=== PATIENT | female | born 1990 | race Hispanic/Latino ===

== ENCOUNTER 2023-02-08 11:40 | Emergency (ER) | payer OTHER, SELFPAY ==
[2023-02-08 11:53] VITALS: BP 120/81; PULSE 73; RESP 16; TEMP 36.6; O2SAT 100
--- NOTE | 2023-02-08 12:11 | ED.EXTPRO ---
HPI - Extremity Problem General Chief complaint: Extremity Problem,Nontraumatic Stated complaint: infectio rt big toe Time Seen by Provider: 02/08/23 12:11 Source: patient, RN notes reviewed and old records reviewed Mode of arrival: ambulatory Limitations: no limitations History of Present Illness HPI Narrative: 33-year-old female presents to the [facility] with complaints of right big toe infection, lateral aspect for approximately 1 week. Has a history of type 2 diabetes depression, schizophrenia bipolar, TBI Related Data Home Medications Medication Instructions Recorded Confirmed benztropine 0.5 mg tablet mg 02/08/23 fenofibrate nanocrystallized 48 mg 48 mg PO DAILY 02/08/23 02/08/23 tablet fluoxetine 40 mg capsule 40 mg PO DAILY 02/08/23 02/08/23 glipizide 5 mg tablet mg 02/08/23 haloperidol 10 mg tablet mg 02/08/23 metformin 500 mg tablet,extended mg PO 02/08/23 release 24 hr pioglitazone 45 mg tablet mg 02/08/23 Allergies Allergy/AdvReac Type Severity Reaction Status Date / Time No Known Allergies Allergy Verified 02/08/23 12:06 Review of Systems Review of Systems: All systems reviewed & are unremarkable except as noted in HPI and below Constitutional: Constitutional: Reports no additional constitutional complaints Eyes: Eyes: Reports no additional eye complaints ENT: Reports system reviewed and no additional complaints, except as documented Cardiovascular: Cardiovascular: Reports no additional cardiovascular complaints, Denies chest pain and Denies dyspnea Respiratory: Respiratory: Reports no additional respiratory complaints, Denies chest congestion, Denies cough and Denies dyspnea Gastrointestinal: Gastrointestinal: Reports no additional gastrointestinal complaints, Denies abdominal pain, Denies nausea and Denies vomiting Musculoskeletal: Musculoskeletal: Reports no additional musculoskeletal complaints Integumentary/Breasts: Skin/Breast: Reports as per HPI Neurologic: Reports system reviewed and no additional complaints, except as documented Psychiatric: Psychiatric: Reports no additional psychiatric complaints Allergic/Immunologic: Allergic/Immunologic: Reports no additional allergic/immunologic complaints PMFSH Comments At the time of my signature, I reviewed and agree with the nursing past medical, surgical, social, and family history. There is no relevant family history pertinent to the patient complaint. Exam Const: General: cooperative, healthy appearing, comfortable, no acute distress, well developed, alert and well nourished Nutritional Appearance: well nourished Orientation/consciousness: patient oriented x3 Limitations: no limitations HENMT: Head: normal to inspection Ears: hearing grossly normal bilaterally and external ears normal Face/Nose/Sinus: Normal external nose present, Normal nares present, Normal nasal mucous membranes and turbinates present and normal facial exam Face and sinus: normal facial exam Eyes: General: appearance normal, both eyes and all related structures Alignment and Position: alignment normal Periorbital: periorbital findings normal Pupils: Equal, round and reactive pupils present EOM: EOMs intact bilaterally Neck: Neck: normal visual inspection, full ROM, no lymphadenopathy and no meningeal signs Chest: Chest palpation & inspection: normal inspection of the chest Resp: Effort & Inspection: normal respiratory effort and able to speak in complete sentences Cardio: Rate: regular rate Rhythm: regular rhythm Back/Spine/Pelvis: Cervical Spine: cervical ROM normal Thoracic/Lumbar Spine: No thoracic spinal tenderness Skin: General skin exam: normal color and no rashes or lesions noted Lesions: no lesions Rashes: no rashes Other: right great toe, indurated skin without fluctuance. Soaked for 20-30 minutes and iodine and warm water. No postural change. Trimmed excessive skin, removed crusting her from toenail. Digital block p
[2023-02-08] MEDS: ACETAMINOPHEN 500 MG TABLET 1000 MG PO (12:55)
== END 2023-02-08 13:41 | disposition home or self-care (01) ==
PROVIDERS: Emergency Provider Nurse Practitioner
DX: L03.031 Cellulitis of right toe (principal); L60.0 Ingrowing nail; E78.00 Pure hypercholesterolemia, unspecified; I10 Essential (primary) hypertension; F41.9 Anxiety disorder, unspecified
CPT/HCPCS: 99213; A9270; G0463

== ENCOUNTER 2023-08-23 15:12 | Emergency (ER) | payer OTHER, SELFPAY ==
--- NOTE | ~2023-08-23 | CT_ITS ---
EXAMINATION: CT brain wo con DATE: 08/23/2023 17:29 INDICATION: headache . TECHNIQUE: Computed tomography (CT) of the head was performed without intravenous contrast. The mA wa s adjusted according to patient size. Iterative reconstruction technique was employed. The dose-lengt h product was 605.33 mGy-cm. COMPARISON: None. FINDINGS: No acute intracranial hemorrhage or extra-axial fluid collection. No hydrocephalus, mass, or herniation. No acute ischemic infarct. Unremarkable dural venous sinus attenuation. No acute osseous abnormality. The aerated spaces are clear. IMPRESSION: No acute intracranial process. Reviewed, dictated and finalized at location K. ER MECHANIC
--- NOTE | ~2023-08-23 | CT_ITS ---
EXAMINATION: CT abdomen pelvis w con DATE: 08/23/2023 17:30 INDICATION: n/v/d, ab pain TECHNIQUE: Computed tomography (CT) of the abdomen and pelvis was performed with 100 mL Omnipaque-350 intravenous contrast. Automated exposure control and iterative reconstruction technique were employe d. The dose-length product was 1498.61 mGy-cm. COMPARISON: None. FINDINGS: Lower thorax: Unremarkable Liver: Diffuse fatty infiltration. Enlarged. Biliary/Gallbladder: Gallbladder is normal. No bile duct dilation. Pancreas: No mass or duct dilation. Spleen: Normal. Adrenals:No mass. Kidneys: No suspicious mass, obstructing stone, or hydronephrosis. GI tract: No small or large bowel dilation. Normal appendix. Mesentery/Peritoneum: No ascites, mass, or free air. Retroperitoneum: No mass. Pelvis: Pelvic organs are within normal limits. Soft Tissues: Soft tissues and body wall unremarkable. Bones: No acute osseous finding. IMPRESSION: Hepatomegaly with steatosis. No acute abdominopelvic process detected. Reviewed, dictated and finalized at location K. OPERATOR
[2023-08-23 15:11] VITALS: BP 118/63; PULSE 99; RESP 22; TEMP 36.9; O2SAT 99
[2023-08-23 15:57] LABS: Basophils Percent Auto 0.3 % (0.2-1.2); Eosinophils Absolute Auto 0.1 K/mm3 (0-0.3); Eosinophils Percent Auto 0.6 % (0-4.4); Hematocrit 35.8 % (37.0-47.0); Hemoglobin 11.5 g/dL (12.0-15.0); Immature Granulocyte Absolute 0.05 K/mm3 (0.00-0.031); Immature Granulocyte Percent A 0.5 % (0-0.5); Lymphocytes Absolute Auto 2.32 K/mm3 (0.9-3.2); Lymphocytes Percent Auto 23.5 % (18.3-44.2); Mean Corpuscular HGB Conc 32.1 g/dl (32-36); Mean Corpuscular Volume 87.3 fl (80-100); Mean Platelet Volume 9.6 fl (7.4-10.4); Monocytes Absolute Auto 0.4 K/mm3 (0.1-0.6); Monocytes Percent Auto 4.5 % (2.6-8.5); Neutrophils Percent Auto 70.6 % (45.5-73.1); Platelet Count Result 338 k/mm3 (150-375); Red Cell Distribution Width 13.5 % (11.5-14.5); White Blood Count 9.9 K/mm3 (4.5-10.0)
[2023-08-23] MEDS: ONDANSETRON INJ 4 MG/2 ML VIAL IV PUSH (16:01)
--- NOTE | 2023-08-23 16:01 | ED.GENADULT ---
HPI - General Adult General Chief complaint: Nausea/Vomiting/Diarrhea Stated complaint: n/v Time Seen by Provider: 08/23/23 15:19 History of Present Illness HPI narrative: 33-year-old female present to the ED for evaluation nausea vomiting and diarrhea. After coming back from her physical therapy patient was more agitated had some nausea and vomiting and did have some psychomotor agitation. Unknown if she actually had a seizure or not. Patient has no prior history of seizure disorder. upon rubs the patient complaining headache and abdominal pain. Related Data Home Medications Medication Instructions Recorded Confirmed benztropine 0.5 mg tablet mg 02/08/23 fenofibrate nanocrystallized 48 mg 48 mg PO DAILY 02/08/23 02/08/23 tablet fluoxetine 40 mg capsule 40 mg PO DAILY 02/08/23 02/08/23 glipizide 5 mg tablet mg 02/08/23 haloperidol 10 mg tablet mg 02/08/23 metformin 500 mg tablet,extended mg PO 02/08/23 release 24 hr pioglitazone 45 mg tablet mg 02/08/23 diphenhydramine HCl 25 mg capsule 25 mg PO TID PRN Allergy Symptoms 08/23/23 Allergies Allergy/AdvReac Type Severity Reaction Status Date / Time No Known Allergies Allergy Verified 08/23/23 15:21 Review of Systems Review of Systems: All systems reviewed & are unremarkable except as noted in HPI and below Exam Narrative: APPEARANCE: Well appearing, no pain, no distress, well-nourished. HEAD: normocephalic, atraumatic. EYES: PERRLA/EOMI, conjunctivae clear. NOSE: Normal no drainage EARS:TMS clear with good light reflex. THROAT: Pharynx clear, no exudate. NECK: Supple. No adenopathy, no masses. RESPIRATORY: Airway patent, respirations nonlabored. Clear to auscultation bilaterally, no rales, rhonchi, wheezing. CARDIOVASCULAR: Regular rate and rhythm without murmurs rubs or gallops. ABDOMINAL: diffuse abdominal tenderness to palpation, normal bowel sounds, nondistended MUSCULOSKELETAL: Moves all extremities. Strength/ROM intact, No edema, No calf tenderness. NEURO: Alert. Cranial nerves II through XII intact. Good gait. Good coordination SKIN: Warm, dry. Normal Color Course Course Emergency Course: 33-year-old female presented the ED for evaluation after possible seizure with associated nausea and vomiting. Patient is afebrile with no leukocytosis and a stable hemoglobin. Patient has no significant abnormalities on her CMP UA shows no evidence of underlying infection patient's urine drug screen was negative the patient was negative for influenza RSV and for COVID. CT brain showed no acute intracranial abnormality. CT abdomen pelvis shows no acute intra-abdominal abnormality. On re-evaluation patient denies any complaints states she does feel improved. Vital Signs Vital signs: Vital Signs Temperature 98.5 F 08/23/23 15:11 Pulse Rate 99 08/23/23 15:11 Respiratory Rate 22 H 08/23/23 15:11 Blood Pressure 118/63 08/23/23 15:11 Pulse Oximetry 99 08/23/23 15:11 Oxygen Delivery Room Air 08/23/23 15:11 Temperature 98.5 F 08/23/23 15:11 Pulse Rate 92 08/23/23 18:47 Respiratory Rate 19 08/23/23 18:47 Blood Pressure 102/80 08/23/23 18:47 Pulse Oximetry 95 08/23/23 18:47 Oxygen Delivery Room Air 08/23/23 15:11 Medical Decision Making Differential Diagnosis Differential Diagnosis: COVID, influenza, pneumonia, seizures Vital Signs Vital Signs: Vital Signs Temperature 98.5 F 08/23/23 15:11 Pulse Rate 99 08/23/23 15:11 Respiratory Rate 22 H 08/23/23 15:11 Blood Pressure 118/63 08/23/23 15:11 Pulse Oximetry 99 08/23/23 15:11 Oxygen Delivery Room Air 08/23/23 15:11 Temperature 98.5 F 08/23/23 15:11 Pulse Rate 92 08/23/23 18:47 Respiratory Rate 19 08/23/23 18:47 Blood Pressure 102/80 08/23/23 18:47 Pulse Oximetry 95 08/23/23 18:47 Oxygen Delivery Room Air 08/23/23 15:11 Lab Data Lab results reviewed: Yes I reviewed the patient's lab results.
[2023-08-23 16:05] LABS: Alanine Aminotransferase 53 U/L (6-35); Albumin Level 4.8 g/dL (3.5-5.1); Alkaline Phosphatase 69 U/L (38-126); Anion Gap 11 mmol/L (8-16); Aspartate Amino Transferase 31 U/L (14-36); Bilirubin,Total 0.6 mg/dL (0.2-1.3); Blood Urea Nitrogen 8 mg/dL (7-17); Calcium 9.5 mg/dL (8.4-10.2); Carbon Dioxide 26 mmol/L (22-30); Chloride 101 mmol/L (98-107); Estimated CRCL calculation 150 ml/min; Estimated Glomerular Filt Rate > 60; Glucose 164 mg/dL (65-110); Lipase 54 U/L (23-300); Potassium 3.5 mmol/L (3.4-5.0); Sodium 138 mmol/L (137-145)
--- NOTE | 2023-08-23 16:36 | PC.NURSE ---
Pt very fidgity at this time. picking at herself and pulling out her hair. Pt caregiver states this is not normal for her. notified
[2023-08-23 16:40] LABS: Appearance Urine Clear (Clear); Bilirubin Urine Negative (Negative); Blood Urine Negative (Negative); Color Urine Yellow (Yellow); Glucose Urine UA Negative (Negative); Ketones Urine Trace mg/dL (Negative); Leukocyte Esterase Ur Negative LEU/UL (Negative); Nitrate Urine Negative (Negative); Protein Urine Negative (Negative); Specific Grav Ur 1.032 (1.001-1.035); pH Urine 6.5 (5.0-9.0)
[2023-08-23] MEDS: LORazepam INJ (*CRX) 2 MG/ML VIAL 1 MG IV PUSH (16:49)
[2023-08-23 16:50] LABS: Add Urine Microscopic? NO
[2023-08-23] MEDS: LORazepam INJ (*CRX) 2 MG/ML VIAL 0.5 MG IV PUSH (16:58)
[2023-08-23 17:12] LABS: Amphetamine Screen Urine Negative (Negative); Barbiturate Screen Urine Negative (Negative); Benzodiazepines Screen Urine Negative (Negative); Cannabinoid Screen Urine Negative (Negative); Cocaine Screen Urine Negative (Negative); Methadone Screen Urine Negative (Negative); Opiate Screen Urine Negative (Negative); Phencyclidine Screen Urine Negative (Negative)
[2023-08-23 17:52] LABS: Influenza A QL RT-PCR Negative (Negative); Influenza B QL RT-PCR Negative (Negative); RSV RNA, RT-PCR Negative (Negative); SARS-CoV-2 RNA PCR Negative (Negative)
[2023-08-23 17:55] VITALS: BP 113/63; PULSE 95; RESP 18; O2SAT 99
[2023-08-23 18:47] VITALS: BP 102/80; PULSE 92; RESP 19; O2SAT 95
== END 2023-08-23 19:34 ==
PROVIDERS: Emergency Provider Emergency Medicine; PCP Physician Assistant
DX: R11.2 Nausea with vomiting, unspecified (principal); G40.89 Other seizures; Z20.822 Contact with and (suspected) exposure to COVID-19
CPT/HCPCS: 36415; 70450; 74177; 80053; 80307; 81003; 81025; 83690; 85025; 87637; 96374; 96375; 99284; J2060; J2405; Q9967

== ENCOUNTER 2023-08-28 12:57 | Emergency (ER) | payer OTHER, SELFPAY ==
--- NOTE | ~2023-08-28 | CT_ITS ---
EXAMINATION: CT brain wo con DATE: 08/28/2023 14:51 INDICATION: Altered mental status . TECHNIQUE: Computed tomography (CT) of the head was performed without intravenous contrast. The mA wa s adjusted according to patient size. Iterative reconstruction technique was employed. The dose-lengt h product was 832.33 mGy-cm. COMPARISON: 08/23/2023. FINDINGS: Motion limited examination which required repeat imaging, performed in a noncontiguous fashion. No acute intracranial hemorrhage or extra-axial fluid collection. No hydrocephalus, mass, or herniation. No acute ischemic infarct. Unremarkable dural venous sinus attenuation. No acute osseous abnormality. The aerated spaces are clear. IMPRESSION: No acute intracranial process. Reviewed, dictated and finalized at location K. PPING [employer]
[2023-08-28 13:01] VITALS: BP 130/67; PULSE 110; RESP 19; TEMP 36.6; O2SAT 98
[2023-08-28 13:48] VITALS: O2SAT 98
--- NOTE | 2023-08-28 14:25 | ED.AMS ---
HPI - Altered Mental Status General Chief Complaint: Psychiatric Symptoms <Ross Dong APRN - Last Filed: 08/28/23 18:55> Stated Complaint: ams <Ross Dong APRN - Last Filed: 08/28/23 18:55> Time Seen by Provider: 08/28/23 13:08 <Ross Dong APRN - Last Filed: 08/28/23 18:55> Source: patient <Ross Dong APRN - Last Filed: 08/28/23 18:55> Mode of arrival: ambulatory <Ross Dong APRN - Last Filed: 08/28/23 18:55> Limitations: no limitations <Ross Dong APRN - Last Filed: 08/28/23 18:55> History of Present Illness HPI narrative: Ratna is a 33-year-old female patient presenting to ER today for altered mental status. Patient was brought in by EMS. Patient lives in a care home and staff reports that patient is not acting appropriate for herself. Patient is scratching her head and slamming the door shut at home. Patient's father stated that this is not normal for her. Patient does have history of psychosis and bipolar disorder. Patient was just seen on August 23 in the ER for nausea, vomiting, possible seizure like activity. Labs and CT brain were performed at that time. CT brain was normal and labs unremarkable. Family arrived and reports patient has history of schizophrenia-denies any changes in her medications. Reports she has been taking her medications as directed. <Ross Dong APRN - Last Filed: 08/28/23 18:55> Related Data Home Medications: Home Medications Medication Instructions Recorded Confirmed benztropine 0.5 mg tablet mg 02/08/23 fenofibrate nanocrystallized 48 mg 48 mg PO DAILY 02/08/23 08/29/23 tablet fluoxetine 40 mg capsule 40 mg PO DAILY 02/08/23 08/29/23 glipizide 5 mg tablet 5 mg 02/08/23 haloperidol 10 mg tablet mg 02/08/23 metformin 500 mg tablet,extended 500 mg PO 02/08/23 release 24 hr pioglitazone 45 mg tablet mg 02/08/23 diphenhydramine HCl 25 mg capsule 25 mg PO TID PRN Allergy Symptoms 08/23/23 <Ross Dong APRN - Last Filed: 08/28/23 18:55> Allergies/Adverse Reactions: Allergies Allergy/AdvReac Type Severity Reaction Status Date / Time No Known Allergies Allergy Verified 08/23/23 15:21 <Ross Dong APRN - Last Filed: 08/28/23 18:55> Review of Systems Review of Systems: Pertinent positives per HPI. Patient denies any fever, chills, rash, headache, visual changes, dizziness, cough, runny nose, sore throat, shortness of breath, chest pain, palpitations, nausea, vomiting, diarrhea, constipation, abdominal pain, or any urinary issues. <Ross Dong APRN - Last Filed: 08/28/23 18:55> PMFSH Social History Social History: Social History Substance use type: does not use <Ross Dong APRN - Last Filed: 08/28/23 18:55> Comments At the time of my signature, I reviewed and agree with the nursing past medical, surgical, social, and family history. There is no relevant family history pertinent to the patient complaint. <Ross Dong APRN - Last Filed: 08/28/23 18:55> Exam Narrative: General: Well-developed, well nourished, in no apparent distress Head: Normocephalic, atraumatic Eyes: Pupils equally round and reactive to light bilaterally, EOM intact, sclera and conjunctive clear, no discharge, lids normal Ears: TMs intact and clear, ear canals clear, no drainage, grossly hearing normal. Nose: Nares patent, no discharge, no inflammation, no sinus tenderness. Mouth: Oropharynx without lesions or masses, good dentition, MMM. Tongue midline, even rise and fall of uvula Neck: Supple, trachea midline, no enlargement of anterior or posterior cervical nodes, no thyroid masses or goiter palpable. Cardio: Regular rate and rhythm, s1 and s2 normal, no murmur appreciated. Resp: Clear to auscultation bilaterally anteriorly and posteriorly, no rhonchi, r
--- NOTE | 2023-08-28 14:26 | ECG_ITS ---
Measurements Intervals [place] Rate: 111 P: 62 MD: 163 QRS: 56 QRSD: 77 T: 1 QT: 326 QTc: 445 Interpretive Statements SINUS TACHYCARDIA POSSIBLE LEFT ATRIAL ENLARGEMENT [-0.1mV P WAVE IN V1/V2] NONSPECIFIC T-WAVE ABNORMALITY ABNORMAL ECG NO PREVIOUS ECG AVAILABLE FOR COMPARISON Electronically Signed On 08-29-2023 12:40:46 [employer] by Stone Moody M.D.
[2023-08-28 15:19] LABS: Basophils Absolute Auto 0.1 K/mm3 (0.0-0.1); Basophils Percent Auto 0.5 % (0.2-1.2); Eosinophils Absolute Auto 0.1 K/mm3 (0-0.3); Eosinophils Percent Auto 1.2 % (0-4.4); Hematocrit 35.1 % (37.0-47.0); Hemoglobin 11.3 g/dL (12.0-15.0); Immature Granulocyte Absolute 0.08 K/mm3 (0.00-0.031); Immature Granulocyte Percent A 0.8 % (0-0.5); Lymphocytes Absolute Auto 2.08 K/mm3 (0.9-3.2); Mean Corpuscular HGB Conc 32.2 g/dl (32-36); Mean Corpuscular Hemoglobin 27.8 pg (26-34); Mean Corpuscular Volume 86.5 fl (80-100); Mean Platelet Volume 9.8 fl (7.4-10.4); Monocytes Absolute Auto 0.5 K/mm3 (0.1-0.6); Monocytes Percent Auto 5.1 % (2.6-8.5); Neutrophils Absolute Auto 6.7 K/mm3 (1.3-6.7); Neutrophils Percent Auto 70.4 % (45.5-73.1); Platelet Count Result 383 k/mm3 (150-375); Red Blood Count 4.06 M/mm3 (4.2-5.4); Red Cell Distribution Width 13.2 % (11.5-14.5); White Blood Count 9.5 K/mm3 (4.5-10.0)
[2023-08-28 15:20] LABS: Ammonia 10 umol/L (9-30)
[2023-08-28 15:26] LABS: Glucose Point of Care 145 mg/dl (65-105)
[2023-08-28 16:02] LABS: Alanine Aminotransferase 57 U/L (6-35); Albumin Level 4.6 g/dL (3.5-5.1); Alkaline Phosphatase 65 U/L (38-126); Anion Gap 10 mmol/L (8-16); Aspartate Amino Transferase 29 U/L (14-36); Bilirubin,Total 0.5 mg/dL (0.2-1.3); Blood Urea Nitrogen 6 mg/dL (7-17); Calcium 9.3 mg/dL (8.4-10.2); Carbon Dioxide 21 mmol/L (22-30); Chloride 105 mmol/L (98-107); Creatine Kinase 80 U/L (30-135); Estimated CRCL calculation 193 ml/min; Estimated Glomerular Filt Rate > 60; Glucose 147 mg/dL (65-110); Potassium 3.7 mmol/L (3.4-5.0); Sodium 136 mmol/L (137-145)
[2023-08-28] MEDS: LORazepam INJ (*CRX) 2 MG/ML VIAL IM (16:19)
[2023-08-28] MEDS: HALOPERIDOL LACTATE 5 MG/ML VIAL IM (16:25)
[2023-08-28 16:52] LABS: Acetaminophen < 10 ug/mL (10-30); Ethanol < 10 mg/dL (<10); Salicylate < 1.0 mg/dL (2-20)
[2023-08-28 17:01] LABS: Appearance Urine Cloudy (Clear); Bacteria Urine 4+ /hpf; Bilirubin Urine Negative (Negative); Blood Urine Negative (Negative); Color Urine Yellow (Yellow); Glucose Urine UA Trace mg/dL (Negative); Ketones Urine Negative (Negative); Leukocyte Esterase Ur Trace LEU/UL (Negative); Need Manual Microscopic Reviewed; Nitrate Urine Negative (Negative); Non Pathogenic Casts 0-2; Protein Urine Negative (Negative); Squamous Epithelial Cell Urine Occasional /hpf (Few); Urobilinogen Urine 0.2 mg/dL (<2.0); WBC Urine 0-5 /hpf; pH Urine 6.5 (5.0-9.0)
[2023-08-28 17:03] LABS: Amphetamine Screen Urine Negative (Negative); Barbiturate Screen Urine Negative (Negative); Benzodiazepines Screen Urine Negative (Negative); Cannabinoid Screen Urine Negative (Negative); Cocaine Screen Urine Negative (Negative); Methadone Screen Urine Negative (Negative); Opiate Screen Urine Negative (Negative); Phencyclidine Screen Urine Negative (Negative)
[2023-08-28 17:12] LABS: Add Urine Microscopic? YES
[2023-08-28 17:40] VITALS: BP 129/83; PULSE 111; RESP 19; O2SAT 100
[2023-08-28 17:47] LABS: SARS-CoV-2 RNA PCR Negative (Negative)
--- NOTE | 2023-08-28 19:17 | PC.NURSE ---
Assumed care of pt from CHRISTIAN Lindsay at this time.
--- NOTE | 2023-08-28 20:40 | PC.NURSE ---
Crisis sent paperwork to [facility] and [facility]. To call [facility] in morning to check availability.
[2023-08-28 21:21] VITALS: BP 123/50; PULSE 100; RESP 20; O2SAT 97
--- NOTE | 2023-08-28 21:22 | PC.NURSE ---
This RN obtained updated set of vitals on pt at this time. Pt resting comfortably in bed w no further requests at this time. LIA.
--- NOTE | 2023-08-28 21:30 | PC.NURSE ---
Lisa from [facility] called for more information on pt. This RN provided Lisa w needed information. [facility] has no beds, but may tomorrow morning so she is still working on placement of pt.
--- NOTE | 2023-08-28 22:04 | PC.NURSE ---
Ariana from [facility] called for more information on pt. This RN answered all additional questions. Ariana to call back after presenting pt to .
--- NOTE | 2023-08-28 22:52 | PC.NURSE ---
Lisa from [facility] called needing IQ documentation. This RN contacted sister whom does not have this document and attempted to call longterm w no success. [facility] stated pt cannot be accepted w this documentation and that she would be on waitlist until they had proof of documentation. Will pass onto daytime nurse taking over to contact longterm for this document if pt is not placed elsewhere tonight.
[2023-08-28 23:13] VITALS: BP 102/89; PULSE 89; RESP 17; O2SAT 98
[2023-08-29 00:33] VITALS: BP 113/87; PULSE 90; RESP 17; O2SAT 95
[2023-08-29 05:15] VITALS: BP 110/67; PULSE 77; RESP 20; O2SAT 96
--- NOTE | 2023-08-29 07:23 | PC.NURSE ---
Report given to CHRISTIAN Rojas at this time.
--- NOTE | 2023-08-29 08:08 | PC.NURSE ---
Pt incontinent of bowel & bladder. Pt cleansed, linen changed, depends applied. Pt following commands, went to sink, washed hands & face. Breakfast tray ordered.
--- NOTE | 2023-08-29 08:25 | PC.NURSE ---
RN called [facility] Esteb[facility] pts retirement, line busy
--- NOTE | 2023-08-29 08:57 | PC.NURSE ---
RN attempted to call [facility] Esteb[facility] with no answer. Attempted to call pt sister who is guardian, no answer
--- NOTE | 2023-08-29 09:15 | PC.NURSE ---
Pt breakfast tray given. Pt conversing in short sentences appropriately
--- NOTE | 2023-08-29 09:21 | PC.NURSE ---
RN attempted to call Leidy Mendoza @ [phone] message states the phone number is not taking calls. [facility] phone number non-functioning
--- NOTE | 2023-08-29 09:29 | PC.NURSE ---
Pt ate 100% of breakfast tray. Continues to be appropriate and cooperative with RN. Conversing in short sentences.
--- NOTE | 2023-08-29 10:11 | PC.NURSE ---
[facility] called spoke with pt. Requesting fax pt assessments & chart. Both faxed
[2023-08-29 10:37] VITALS: BP 102/63; PULSE 88; RESP 16; TEMP 36.6; O2SAT 97
--- NOTE | 2023-08-29 11:02 | PC.NURSE ---
[facility], denied pt due to higher acuity of ADL's.
--- NOTE | 2023-08-29 11:39 | PC.NURSE ---
Lizz with [facility] called requesting demonigraphic sheet & urine preg test. Pt update given. Pt is cooperative speaking in short sentences appropriately
[2023-08-29 11:49] LABS: Pregnancy On Board Control Positive; Urine Pregnancy Test Negative
--- NOTE | 2023-08-29 12:15 | PC.NURSE ---
Lunch tray ordered
--- NOTE | 2023-08-29 13:00 | PC.NURSE ---
Pt ambulated to bathroom, voided small amount of clear yellow urine, incontinent in depends. Pt independent with washing hands. Continues to speak in short sentences.
--- NOTE | 2023-08-29 13:15 | PC.NURSE ---
Application for Voluntary Admission faxed to [facility] Intake per request @ [phone]
--- NOTE | 2023-08-29 15:03 | PC.NURSE ---
Pt ambulated independently to BR. Pt conversing with RN, asking to have lights off asking for help with TV
== END 2023-08-29 18:00 ==
PROVIDERS: Nurse Practitioner Family; Emergency Provider Emergency Medicine; PCP Physician Assistant
DX: R41.82 Altered mental status, unspecified (principal); R45.1 Restlessness and agitation; F20.9 Schizophrenia, unspecified; Z11.52 Encounter for screening for COVID-19; Z79.84 Long term (current) use of oral hypoglycemic drugs
CPT/HCPCS: 36415; 70450; 80053; 80307; 81001; 81025; 82140; 82248; 82550; 82948; 83605; 84443; 85025; 87635; 93005; 96372; 99285; J1630; J2060

== ENCOUNTER 2025-01-10 18:10 | Emergency (ER) | payer OTHER, SELFPAY ==
--- NOTE | ~2025-01-10 | CT_ITS ---
CLINICAL INDICATION: Left lower quadrant pain COMPARISON: 08/23/2023. TECHNIQUE: Multiple contiguous axial images of the abdomen and pelvis were performed without the admi nistration of intravenous contrast The dose-length product (DLP) was 1058.21 mGy-cm. Automated exposure control and iterative reconstruction technique were employed. FINDINGS/OBSERVATIONS: Visualized lower thorax: Trace bibasilar atelectasis. The remainder of the bilateral lung bases are clear The heart is of normal size, without pericardial effusion. Small hiatal hernia is present. Liver: The liver demonstrates homogeneously decreased attenuation and is enlarged measuring 19 cm in longitu dinal dimension. Gallbladder and biliary system: The gallbladder is only minimally distended, and otherwise unremarkable. Pancreas: Limited evaluation of the pancreas secondary to the lack of intravenous contrast. Spleen: The spleen demonstrates homogeneous attenuation and is not enlarged. There are Kidneys: The bilateral kidneys are unremarkable, without hydronephrosis or renal calculi. Adrenal glands: Unremarkable. Gastrointestinal tract: Unremarkable. Appendix: The air-filled appendix is of normal caliber (axial series, images 146 through 166). Vasculature: Unremarkable. Lymph nodes: Limited evaluation without intravenous contrast. Pelvic structures: The bladder is only minimally distended and otherwise unremarkable. The uterus is anteverted and anteflexed, and otherwise unremarkable. Body wall and musculoskeletal: No significant degenerative disease within the lower thoracic or lumbosacral spine. IMPRESSION: Fatty infiltration of an enlarged liver. No acute intra-abdominal pathology, as detailed above. Reviewed, dictated and finalized at location A.
--- OUTSIDE RECORDS SUMMARY | 2025-01-10 18:13 | XMS_ITS | Clinical Summary ---
Author Organization [facility] Address [address] [place] [address] Care Team Providers Care Automobile Repair Service Estimator Name Role Phone Jung Brown MD Primary Care Provider [phone] Source Comments [facility],non-owned Affiliates and Associated Physician Practices is amultiple site organization consisting of ambulatory clinics and hospital sitesin [place], [place], [place] and [place]. This disclosure is being madepursuant to the Care Everywhere program and may not contain all information available regarding this patient. Last updated 18.[facility] Allergies No known active allergies Medications * This document contains information received from the source organization and may not represent a complete record from that organization. * Be aware that medications may not be up to date on this document. Alwaysverify current medications with the patient. fenofibrate (TRICOR) 48 MG tabletIndications: Type 2 diabetes mellitus with complication, with long-term current use of insulin (HCC) Take 48 mg by mouth once daily 6 02/14/20 18 Active Incontinence Supply Disposable (DEPEND ADJUSTABLE UNDERWEAR) MISC Use 1 Each 2 times daily 60 Each 11 02/01/20 19 Active ergocalciferol (DRISDOL) 62679 units capsule ergocalciferol (vitamin D2) 50,000 unit capsule Active pioglitazone (ACTOS) 45 MG tabletIndications: Type 2 diabetes mellitus with complication, with long-term current use of insulin (HCC) Take 1 tablet by mouth once daily 90 tablet 3 05/16/20 Active metFORMIN ER 24hr (GLUCOPHAGE XR) 500 MG tabletIndications: Type 2 diabetes mellitus with complication, with long-term current use of insulin (HCC) Take 2 tablets in morning and 2 tablets in evening 360 tablet 3 08/01/20 19 Active glipiZIDE (GLUCOTROL) 5 MG tablet Take 1 tablet by mouth 2 times daily 180 tablet 3 11/28/19 20 Active benztropine (Cogentin) 0.5 MG tabletIndications: Drug-Induced Extrapyramidal Reaction Take 1 (one) tablet by mouth 2 times daily Reasons: Extrapyramidal Reaction caused by Medications 60 tablet 2 04/22/20 22 Active haloperidol (Haldol) 10 MG tabletIndications: Behavioral Problems Take 1 (one) tablet by mouth 2 times daily Reasons: Problems with Behavior 60 tablet 2 04/22/20 22 Active FLUoxetine (PROzac) 40 MG capsule Take 1 (one) capsule by mouth every morning 90 capsule 2 04/22/20 22 Active Active Problems Problem Noted Date Diagnosed Date Intellectual functioning disability 11/07/2019 Major depressive disorder with current active ep isode 08/31/2019 PTSD (post-traumatic stress disorder) 08/31/2019 Bowel and bladder incontinence 01/31/2019 Microalbuminuric diabetic nephropathy 01/31/2019 Rash of genitalia 01/31/2019 Diabetes mellitus with neurological manifestatio ns 03/28/2018 Hyperlipidemia 12/26/2017 Immunizations Immunization Administration Dates Next Due FLU VACCINE QUAD IIV4 SPLIT 0.25 ML IM 8,06/15/2016 INFLUENZA VACCINE, CELL CULT URE, QUADR. (FLUCELVAX QUADRIVALENT; 6MO+) (CCIIV4) 05/31/2019 PNEUMOCOCCAL PPSV23 12/05/2017 TDAP (7yrs+) 12/05/2017 Social History Tobacco Use Types Packs/Day Years Used Date Smoking Tobacco: Never Smokeless Tobacco: Never Alcohol Use Standard Drinks/Week Comments No 0 (1 standard drink = 0.6 oz pur e alcohol) PHQ-2 Answer Date Recorded PHQ2 TOTAL SCORE 3 01/19/2022 Comments No Sex and Gender Information Value Date Recorded Sex Assigned at Not on file Legal Sex Female 5:53 PM PRESS WASHER Gender Identity Not on file Sexual Orientation Not on file Last Filed Vital Signs Vital Sign Reading Time Taken Comments Blood Pressure 116/74 01/19/2022 8:12 AM CDT Pulse 85 04/22/2022 10:55 AM CDT Temperature 36.4 C (97.6 F) 04/22/2022 10:55 AM CDT Respiratory Rate 20 04/22/2022 10:55 AM CDT Oxygen Saturation 100% 04/22/2022 10:55 AM CDT Inhaled Oxygen Concentration - - Weight 95.8 kg (211 lb 3.2 oz) 04/22/2022 10:55 AM CDT Height 162.6 cm (5' 4 ) 04/22/2022 10:55 AM CDT Body Mass Index 36.25 04/22/2022 10:55 AM CDT Plan of Treatment Health Maintenance Due Date Last Done Comments PAP SMEAR 1989 HIV SCREENING 01/07/2004 HEPATITIS C SCREENING 01/02/2007 HEPATITIS B VACCINE (1 of 3 - 19+ 3-dose series) 01/07/2008 DIABETES RETINOPATHY SCREENING 03/28/2018 PNEUMOCOCCAL VACCINE (2 of 2 - PCV) 12/05/2018 12/05/2017 DIABETES-FOOT EXAM WITH MONOFILAMENT 08/01/2020 08/01/2019, 03/28/2018, 03/28/2018 DIABETES-HGB A1C 01/24/2022 10/27/2021, , 11/22/2018, Additional history exists DIABETES-SERUM CREATININE 10/27/20222021, 12/06/2018, 11/22/2018, Additional history exists COVID-19 VACCINE ( - season) 2024 DEPRESSION SCREENING 09/19/2024 04/22/2022 DIABETES - URINE PROTEIN SCREENING 09/19/2024 11/22/2018 INFLUENZA VACCINE (Season Ended) 2025 05/26/2021, 05/31/2019, 12/05/2017, Additional history exists DTAP/TDAP/TD VACCINES (2 - Td or Tdap) 12/06/2027 12/05/2017 ZOSTER VACCINE (1 of 2) 2039 HIB VACCINE Aged Out No longer eligi ble based on patient's age to complete this topic HPV VACCINE Aged Out No longer eligi ble based on patient's age to complete this topic MENINGOCOCCAL (Group B) VACCINE SHARED DECISION-MAKING Aged Out No longer eligible based on patient's age to complete this topic MENINGOCOCCAL GROUPS A/C/Y/W VACCINE Aged Out No longer eligible based on patient's age to complete this topic Procedures Procedure Name Priority Date/Time Associated Diagnosis Comments HEMOGLOBIN A1C - POINT OF CARE (AMB) [facility] Routine 08/01/2019 3:33 PM PRESS WASHER Type 2 diabetes mellitus without complication, without long-term current use of insulin COMPREHENSIVE METABOLIC PANEL STAT 12/06/2018 12:51 PM CDT MICROALB/CREAT RATIO URINE RANDOM PANEL Routine 11/22/2018 2:48 PM PRESS WASHER Type 2 diabetes mellitus with complication, with long-term current use of insulin from Last 3 Months or Most Recently Relevant to Health Maintenance Results * HEMOGLOBIN A1C - POINT OF CARE (AMB) [facility] (08/01/2019 3:33 PM PRESS WASHER) Pathologist [facility] Hemoglobin A1c POCT 11.6 [facility] Blood BLOOD SPECIMEN / Unknown 08/01/2019 3:33 PM PRESS WASHER us Dyana Tracey MD LAB - POINT OF CARE ORDERABLES F inal Result [facility] [address] [place] [address] * (ABNORMAL) COMPREHENSIVE METABOLIC PANEL (12/06/2018 12:51 PM CDT) Pathologist [facility] BUN 11 7 - 26 mg/dL 12/06/2018 1:24 PM CDT [facility] Creatinine 0.4(L) 0.6 - 1.2 mg/dL 12/06/2018 1:24 PM CDT [facility] Sodium 137 136 - 145 mmol/L 12/06/2018 1:24 PM CDT [facility] Potassium 3.8 3.5 - 4.5 mmol/L 12/06/2018 1:24 PM CDT [facility] Chloride 106 98 - 107 mmol/L 12/06/2018 1:24 PM [facility] CO2 20(L) 22 - 29 mmol/L 12/06/2018 1:24 PM [facility] Glucose 308(H) 70 - 115 mg/dL 12/06/2018 1:24 PM [facility] Calcium 9.7 8.4 - 10.2 mg/dL 12/06/2018 1:24 PM [facility] Protein Total 7.3 6.0 - 8.3 g/dL 12/06/2018 1:24 PM [facility] Albumin 3.8 3.4 - 5.0 g/dL 12/06/2018 1:24 PM [facility] Bilirubin Total 0.6 0.2 - 1.2 mg/dL 12/06/2018 1:24 PM [facility] Alkaline Phosphatase 82 40 - 150 Units/L 12/06/2018 1:24 PM [facility] ALT 18 0 - 55 Units/L 12/06/2018 1:24 PM [facility] AST 11 5 - 34 Units/L 12/06/2018 1:24 PM [facility] Anion Gap 15 8 - 18 12/06/2018 1:24 PM [facility] BUN/Creatinine Ratio 28(H) 7 - 23 12/06/2018 1:24 PM [facility] Osmolality Calculated 295 270 - 300 mOsm/kg 12/06/2018 1:24 PM [facility] Albumin/Globulin Ratio 1.1 1.1 - 2.3 12/06/2018 1:24 PM [facility] eGFR >60 >60 mL/min/1.7 3 m2 12/06/2018 1:24 PM [facility] Blood BLOOD SPECIMEN / Unknown Venipuncture / Unknown 12/06/2018 12:51 PM CDT 12/06/2018 12:59 PM T us Jean Claude Barriga MD LAB - CHEMISTRY ORDERABLES Final Result [facility] [address] [place] [address] * (ABNORMAL) MICROALB/CREAT RATIO URINE RANDOM PANEL (11/22/2018 2:48 PM PRESS WASHER) Albumin Random Urine 13.0 Not Established mcg/mL 11/22/2018 4:29 PM [facility] Creatinine Urine 44 Not Established mg/dL 11/22/2018 4:29 PM PRESS WASHER [facility] Comment: Result obtained by dilution. Urine Albumin/Creati nine Ratio 30(H) <30 mg/g 11/22/2018 4:29 PM [facility] Urine URINE SPECIMEN OBTAINED BY CLEAN CATCH PROCEDURE / Unknown Collection / Unknown 11/22/2018 2:48 PM PRESS WASHER 11/22/2018 3:32 PM PRESS WASHER us Gayle Campbell MD LAB - URINE CHEMISTRY ORDERABL ES Final Result [address] [phone] from Last 3 Months or Most Recently Relevant to Health Maintenance Insurance [facility] Care Address: [address] [address] [facility] [address] [place] [address] [facility] Care Teams Automobile Repair Service Estimator Relationship Specialty Start Date End Date Jung Brown MD [address] [place] [address] PCP - General 08/26/15
--- OUTSIDE RECORDS SUMMARY | 2025-01-10 18:13 | XMS_ITS | Encounter Summary ---
Author Organization [facility] Address [address] 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 Name Role Phone Josue Walsh MD Primary Care Provider [phone] Encounter Details Date Type Department Care Team (Late st Contact Info) Description 12/17/2024 Results Follow-Up [facility] - Internal Medicine - [place] [address] [place] [address] Josue Walsh MD [address] [facility] [place] [address] POCT GLYCOSYLATED HEMOGLOBIN Social History Tobacco Use Types Packs/Day Years Used Date Smoking Tobacco: Never Passive Smoke Exposure: Never Smokeless Tobacco: Never Alcohol Use Standard Drinks/Week Comments Never 0 (1 standard drink = 0.6 oz pur e alcohol) [facility] Utilities Answer Date Recorded In the past 12 months has [employer], gas, oil, or water [employer] threatened to shut off services in your home? Patient unable to answer 11/15/2023 Social Connection and Isolation Panel [NHANES] A nswer Date Recorded In a typical week, how many times do you talk on the phone with family, friends, or neighbors? Patient unable to answer 11/15/2023 How often do you get togethe r with friends or relatives? Patient unable to answer 11/15/2023 How often do you attend chur ch or mu-ism services? Patient unable to answer 11/15/2023 Do you belong to any clubs o r organizations such as anglican groups, unions, fraternal or athletic groups, or school groups? Patient unable to answer 11/15/2023 How often do you attend meet ings of the clubs or organizations you belong to? Patient unable to answer 11/15/2023 Are you , , di vorced, , never , or living with a partner? Patient unable to answer 11/15/2023 AUDIT-C Answer Date Recorded Q1: How often do you have a drink containing alcohol? Patient unable to answer 11/15/2023 Q2: How many drinks containi ng alcohol do you have on a typical day when you are drinking? Patient unable to answer Q3: How often do you have si x or more drinks on one occasion? Patient unable to answer 11/15/2023 Overall Financial Resource Strain (CARDIA) Answe r Date Recorded How hard is it for you to pa y for the very basics like food, housing, medical care, and heating? Patient unable to answer 11/15/2023 PHQ-2 Answer Date Recorded Total Score - Questions 1-9 0 09/19 [facility] - Occupational Stress Questionnaire Answer Date Recorded Do you feel stress - tense, restless, nervous, or anxious, or unable to sleep at night because your mind is troubled all the time - these days? Patient unable to answer 11/15/2023 Exercise Vital Sign Answer Date Recorde d On average, how many days pe r week do you engage in moderate to strenuous exercise (like a brisk walk)? Patient unable to answer 11/15/2023 On average, how many minutes do you engage in exercise at this level? Patient unable to answer 11/15/2023 Hunger Vital Sign Answer Date Recorded Within the past 12 months, y ou worried that your food would run out before you got the money to buy more. Patient unable to answer 11/15/2023 Within the past 12 months, t he food you bought just didn't last and you didn't have money to get more. Patient unable to answer 11/15/2023 PRAPARE - Transportation Answer Date Re corded In the past 12 months, has l ack of transportation kept you from medical appointments or from getting medications? Patient unable to answer 11/15/2023 In the past 12 months, has l ack of transportation kept you from meetings, work, or from getting things needed for daily living? Patient unable to answer 11/15/2023 Housing Stability Vital Sign Answer Henrik e Recorded In the last 12 months, was t here a time when you were not able to pay the mortgage or rent on time? Patient unable to answer 11/15/2023 Number of Places Lived in the Last Year Not on f ile 11/15/2023 In the last 12 months, was t here a time when you did not have a steady place to sleep or slept in a correction (including now)? Patient unable to answer 11/15/2023 Sexually Active Control Partners Comments Never Comments No Sex and Gender Information Value Date Recorded Sex Assigned at Not on file Legal Sex Female 10:07 AM CDT Gender Identity Not on file Sexual Orientation Not on file documented as of this encounter Plan of Treatment Upcoming Encounters Date Type Department Care Team (Late st Contact Info) Description 02/27/2025 9:45 AM CDT Office Visit [facility] - Internal Medicine [place] [address] [place] [address] Josue Walsh MD [address] [place] [address] documented as of this encounter Visit Diagnoses Not on filedocumented in this encounter Additional Health Concerns Assessment Noted Time PHQ-9 Depression Total Score: 0 09/30/19 21 10:00 AM 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
--- OUTSIDE RECORDS SUMMARY | 2025-01-10 18:13 | XMS_ITS | Clinical Summary ---
Author Organization [facility] Address [address] [place] [address] Phone Care Team Providers Care Manager Corporate Responsibility Name Role Phone Josue Walsh MD Primary Care Provider [phone] Allergies No known active allergies Medications fenofibrate (TRICOR) 48 MG Tablet Take by mouth. 8 Active FLUoxetine (PROZAC) 40 MG Capsule Take by mouth. 0 Active OneTouch Ultra Strip 0 Active Easy Touch Lancets 30G Misc 0 Active pioglitazone (ACTOS) 45 MG Tablet Take by mouth. 9 Active acetaminophen (TYLENOL) 325 MG Tablet Take 325 mg by mouth every 4 hours as needed. Active ketoconazole (NIZORAL) 2 % Cream 2 Active haloperidol (HALDOL) 10 MG Tablet Take 1 Tablet by mouth 2 times daily. Active Hydrocortisone Acetate 1 % Cream Apply 1 application twice a day by topical route as needed for 30 days. 9 Active triamcinolone (KENALOG) 0.1 % Cream APPLY A THIN LAYER TO THE AFFECTED AREA(S) BY TOPICAL ROUTE 2 TIMES PER DAY Active metFORMIN (GLUCOPHAGE-XR) 500 MG TABLET SR 24 HR Take 2 Tablets by mouth 2 times daily. This RX is for Metformin SR. 120 Tablet 5 4 Active glipiZIDE (GLUCOTROL) 10 MG Tablet Take 1 Tablet by mouth 2 times daily (after meals). 60 Tablet 3 4 Active insulin glargine (LANTUS, BASAGLAR) 100 UNIT/ML Solution Pen-injector 10 Units by Subcutaneous route every evening. 3 mL 5 4 Active Insulin Pen Needle (PEN NEEDLES 31GX5/16 ) 31G X 8 MM Misc As Instructed 30 Each 4 4 Active diphenhydrAMINE (BENADRYL) 25 MG Capsule Take 25 mg by mouth every 6 hours as needed. Active divalproex (DEPAKOTE ER) 500 MG TABLET SR 24 HR Take 500 mg by mouth daily. Active fluticasone (FLONASE) 50 MCG/ACT Suspension 1 [place] by Nasal route daily. Use in each nostril as directed. 16 g 5 Active Active Problems Problem Noted Date Diagnosed Date Type 2 diabetes mellitus wit hout complication, without long-term current use of insulin 09/30/2020 Mixed hyperlipidemia 09/30/2020 Bipolar disorder 09/30/2020 Intellectual disability 09/30/2020 Encounters Date Type Department Care Team Description 12/17/2024 2:00 PM CDT Office Visit [facility] Internal Medicine [facility] [address] [place] [address] Josue Walsh MD Ear pain, bilateral (Primary Dx); Type 2 diabetes mellitus without complication, without long-term current use of insulin (HCC); Acute pain of right shoulder Discharge Disposition: Discharged to home or Selfcare 12/17/2024 Results Follow-Up [facility] Internal Medicine [facility] [address] [place] [address] Josue Walsh MD POCT GLYCOSYLATED HEMOGLOBIN 12/17/2024 Travel from Last 3 Months Immunizations Immunization Administration Dates Next Due Influenza Vaccine greater than 3 yrs 06/23/2022 Influenza Vaccine, Quadrivalent, PF 05/26/2021 Social History Tobacco Use Types Packs/Day Years Used Date Smoking Tobacco: Never Passive Smoke Exposure: Never Smokeless Tobacco: Never Tobacco Cessation:Counseling Given: No Alcohol Use Standard Drinks/Week Comments Never 0 (1 standard drink = 0.6 oz pur e alcohol) [facility] Utilities Answer Date Recorded In the past 12 months has e [employer], gas, oil, or water [employer] threatened to shut off services in your [...] 11/15/2023 How often do you attend chur or anabaptist services? Patient unable to answer 11/15/2023 Do you belong to any clubs o r organizations such as lutheran groups, unions, fraternal or athletic groups, or [...] Total Score - Questions 1-9 0 09/19 [facility] - Occupational Stress Questionnaire Answer Date Recorded [...] place to sleep or slept in a assisted (including now)? Patient unable to answer 11/15/2023 Sexually Active Control Partners Comments Never Comments No Sex and Gender Information Value Date Recorded Sex Assigned at Not on file Legal Sex Female 10:07 AM CDT Gender Identity Not on file Sexual Orientation Not on file Last Filed Vital Signs Vital Sign Reading Time Taken Comments Blood Pressure 118/64 12/17/2024 1:50 PM CDT Pulse 64 12/17/2024 1:50 PM CDT Temperature 36.6 C (97.9 F) 12/17/2024 1:50 PM CDT Respiratory Rate 12 02/14/2024 10:14 AM CDT Oxygen Saturation 98% 12/17/2024 1:50 PM CDT Inhaled Oxygen Concentration - - Weight 99.8 kg (220 lb) 12/17/2024 1:50 PM CDT Height 165.1 cm (5' 5 ) 12/17/2024 1:50 PM CDT Body Mass Index 36.61 12/17/2024 1:50 PM CDT Plan of Treatment Upcoming Encounters Date Type Department Care Team (Late st Contact Info) Description 02/27/2025 9:45 AM CDT Office Visit [facility] - Internal Medicine - [place] [address] [place] [address] Josue Walsh MD [address] [place] [address] Health Maintenance Due Date Last Done Comments Diabetes: Eye Exam 1989 Hepatitis C Virus (HCV) Screening 1989 Hepatitis B Immunization (1 of 3 - 19+ 3-dose series) 01/07/2008 Pap Smear 2010 Pneumococcal Immunization Combined (2 of 2 - PCV) 12/05/2018 12/05/2017 Cervical Cancer Screening (CCS) 2019 HPV/Cotest 2019 SARS-COV-2 Immunization ( season) 2024 06/30/2022, 11/10/2021, 11/05/2020, Additional history exists Diabetes: Foot Exam 02/13/2025 02/14/2024, Diabetes: Hemoglobin A1c 06/18/2025 025, 10/10/2024, 09/04/2024, Additional history exists Diabetes: Nephropathy Screening 10/10/2025 10/10/2024, 09/04/2024, 10/06/2023, Additional history exists Respiratory Syncytial Virus (RSV) Immunization (Adult) (1 - 1-dose 75+ series) 01/07/2064 DTaP/Tdap/Td Immunization Discontinued 12/05/2017 TdaP Immunization Completed 12/05/2017 Influenza Immunization Discontinued , 06/23/2022, 05/26/2021, Additional history exists Meningococcal Immunization (ACWY) Aged Out No longer eligible based on patient's age to complete this topic Rotavirus Immunization Aged Out No lo nger eligible based on patient's age to complete this topic Procedures Procedure Name Priority Date/Time Associated Diagnosis Comments POCT GLYCOSYLATED HEMOGLOBIN Routine 12/17/2024 2:10 PM CDT Type 2 diabetes mellitus without complication, without long-term current use of insulin (HCC) CMP (COMPREHENSIVE METABOLIC PANEL) 10/10/2024 12:00 AM 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 from Last 3 Months or Most Recently Relevant to Health Maintenance Results * (ABNORMAL) POCT GLYCOSYLATED HEMOGLOBIN (12/17/2024 2:10 PM CDT) HGB-A1C 7.1(A) 4 - 6 % 12/17/2024 2:10 PM CDT Josue Walsh MD POINT OF CARE TESTING (MANU AL) Final Result * CMP (COMPREHENSIVE METABOLIC PANEL) (10/10/2024 12:00 AM 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) 10/10/2024 us Provider Scan CHEMISTRY ORDERABLES Final Resul t SCAN from Last 3 Months or Most Recently Relevant to Health Maintenance Insurance [place]ICAID [place] Care Teams Manager Corporate Responsibility Relationship Specialty Start Date End Date Josue Walsh MD [address] [place] [address] PCP - General Internal Medicine 09/18/20
[2025-01-10 18:22] VITALS: BP 112/66; PULSE 76; RESP 20; TEMP 36.4; O2SAT 97
--- NOTE | 2025-01-10 18:38 | PC.NURSE ---
Pt states unable to pee at this time
[2025-01-10 18:43] LABS: Basophils Percent Auto 0.6 % (0.2-1.2); Eosinophils Absolute Auto 0.2 K/mm3 (0-0.3); Eosinophils Percent Auto 3.5 % (0-4.4); Hematocrit 33.9 % (37.0-47.0); Hemoglobin 10.8 g/dL (12.0-15.0); Immature Granulocyte Absolute 0.05 K/mm3 (0.00-0.031); Immature Granulocyte Percent A 0.7 % (0-0.5); Lymphocytes Absolute Auto 2.78 K/mm3 (0.9-3.2); Lymphocytes Percent Auto 40.1 % (18.3-44.2); Mean Corpuscular HGB Conc 31.9 g/dl (32-36); Mean Corpuscular Hemoglobin 28.6 pg (26-34); Mean Corpuscular Volume 89.7 fl (80-100); Monocytes Absolute Auto 0.5 K/mm3 (0.1-0.6); Monocytes Percent Auto 6.5 % (2.6-8.5); Neutrophils Absolute Auto 3.4 K/mm3 (1.3-6.7); Neutrophils Percent Auto 48.6 % (45.5-73.1); Platelet Count Result 316 k/mm3 (150-375); Red Blood Count 3.78 M/mm3 (4.2-5.4); Red Cell Distribution Width 13.1 % (11.5-14.5); White Blood Count 6.9 K/mm3 (4.5-10.0)
[2025-01-10 18:56] LABS: Alanine Aminotransferase 41 U/L (6-35); Albumin Level 4.5 g/dL (3.5-5.1); Alkaline Phosphatase 58 U/L (38-126); Anion Gap 9 mmol/L (4-12); Aspartate Amino Transferase 25 U/L (14-36); Bilirubin,Total 0.5 mg/dL (0.2-1.3); Blood Urea Nitrogen 9 mg/dL (7-17); Calcium 8.9 mg/dL (8.4-10.2); Carbon Dioxide 26 mmol/L (22-30); Chloride 103 mmol/L (98-107); Estimated Glomerular Filt Rate > 60; Glucose 117 mg/dL (65-110); Lipase 46 U/L (23-300); Sodium 138 mmol/L (137-145)
[2025-01-10 18:58] VITALS: BP 111/67; PULSE 71; RESP 20; O2SAT 100
[2025-01-10 19:18] VITALS: BP 121/66; PULSE 75; RESP 18; O2SAT 100
--- OUTSIDE RECORDS SUMMARY | 2025-01-10 19:19 | XMS_ITS | Clinical Summary ---
Author Organization [facility] Address [address] [place] [address] Care Team Providers Care Security Services Manager Name Role Phone Jung Brown MD Primary Care Provider [phone] Source Comments [facility],non-owned Affiliates and Associated Physician Practices is amultiple site organization consisting of ambulatory clinics and hospital sitesin [place], [place], [place] and [place]. This disclosure is being madepursuant to the Care Everywhere program and may not contain all information available regarding this patient. Last updated 18.[facility] Allergies No known active allergies Medications * [...] Each 11 02/01/20 19 Active ergocalciferol (DRISDOL) 12103 units capsule ergocalciferol (vitamin D2) 50,000 unit [...] on file Legal Sex Female 5:53 PM SYSTEMS MGR Gender Identity Not on file Sexual Orientation [...] CARE (AMB) [facility] Routine 08/01/2019 3:33 PM SYSTEMS MGR Type 2 diabetes mellitus without complication, without long-term current use of insulin COMPREHENSIVE METABOLIC PANEL STAT 12/06/2018 12:51 PM CDT MICROALB/CREAT RATIO URINE RANDOM PANEL Routine 11/22/2018 2:48 PM SYSTEMS MGR Type 2 diabetes mellitus with complication, with long-term current use of insulin from Last 3 Months or Most Recently Relevant to Health Maintenance Results * HEMOGLOBIN A1C - POINT OF CARE (AMB) [facility] (08/01/2019 3:33 PM SYSTEMS MGR) Pathologist [facility] Hemoglobin A1c POCT 11.6 [facility] Blood BLOOD SPECIMEN / Unknown 08/01/2019 3:33 PM SYSTEMS MGR us Dyana Tracey MD LAB - POINT OF CARE ORDERABLES F inal Result [facility] [address] [facility] [place] [address] * (ABNORMAL) COMPREHENSIVE METABOLIC PANEL (12/06/2018 12:51 PM CDT) Pathologist [facility] BUN 11 7 - 26 mg/dL 12/06/2018 1:24 PM CDT [facility] Creatinine 0.4(L) 0.6 - 1.2 mg/dL 12/06/2018 1:24 PM CDT [facility] Sodium 137 136 - 145 mmol/L 12/06/2018 1:24 PM CDT [facility] Potassium 3.8 3.5 - 4.5 mmol/L 12/06/2018 1:24 PM CDT [facility] Chloride 106 98 - 107 mmol/L 12/06/2018 1:24 PM [facility] CO2 20(L) 22 - 29 mmol/L 12/06/2018 1:24 PM [facility] Glucose 308(H) 70 - 115 mg/dL 12/06/2018 1:24 PM [facility] Calcium 9.7 8.4 - 10.2 mg/dL 12/06/2018 1:24 PM [facility] Protein Total 7.3 6.0 - 8.3 g/dL 12/06/2018 1:24 PM [facility] Albumin 3.8 3.4 - 5.0 g/dL 12/06/2018 1:24 PM [facility] Bilirubin Total 0.6 0.2 - 1.2 mg/dL 12/06/2018 1:24 PM [facility] Alkaline Phosphatase 82 40 - 150 Units/L 12/06/2018 1:24 PM [facility] ALT 18 0 - 55 Units/L 12/06/2018 1:24 PM [facility] AST 11 5 - 34 Units/L 12/06/2018 1:24 PM [facility] Anion Gap 15 8 - 18 12/06/2018 1:24 PM [facility] BUN/Creatinine Ratio 28(H) 7 - 23 12/06/2018 1:24 PM [facility] Osmolality Calculated 295 270 - 300 mOsm/kg 12/06/2018 1:24 PM [facility] Albumin/Globulin Ratio 1.1 1.1 - 2.3 12/06/2018 1:24 PM [facility] eGFR >60 >60 mL/min/1.7 3 m2 12/06/2018 1:24 PM [facility] Blood BLOOD SPECIMEN / Unknown Venipuncture / Unknown 12/06/2018 12:51 PM CDT 12/06/2018 12:59 PM T us Jean Claude Barriga MD LAB - CHEMISTRY ORDERABLES Final Result [facility] [address] [place] [address] * (ABNORMAL) MICROALB/CREAT RATIO URINE RANDOM PANEL (11/22/2018 2:48 PM SYSTEMS MGR) Albumin Random Urine 13.0 Not Established mcg/mL 11/22/2018 4:29 PM [facility] Creatinine Urine 44 Not Established mg/dL 11/22/2018 4:29 PM SYSTEMS MGR [facility] Comment: Result obtained by dilution. Urine Albumin/Creati nine Ratio 30(H) <30 mg/g 11/22/2018 4:29 PM [facility] Urine URINE SPECIMEN OBTAINED BY CLEAN CATCH PROCEDURE / Unknown Collection / Unknown 11/22/2018 2:48 PM SYSTEMS MGR 11/22/2018 3:32 PM SYSTEMS MGR us Gayle Campbell MD LAB - URINE CHEMISTRY ORDERABL ES Final Result [address] [phone] from Last 3 Months or Most Recently Relevant to Health Maintenance Insurance [facility] Care Address: [address] [address] [facility] [address] [place] [address] [facility] Care Teams Security Services Manager Relationship Specialty Start Date End Date Jung Brown MD [address] [place] [address] PCP - General 08/26/15
--- OUTSIDE RECORDS SUMMARY | 2025-01-10 19:19 | XMS_ITS | Encounter Summary ---
Author Organization [facility] Address [address] [place] [address] Phone Care Team Providers Care Arc Welding Machine Operator Name Role Phone Josue Walsh MD Primary Care Provider [phone] Encounter Details Date Type Department Care Team (Late st Contact Info) Description 12/17/2024 Results Follow-Up [facility] - Internal Medicine - [place] [address] [place] [address] Josue Walsh MD [address] [facility] [place] [address] POCT GLYCOSYLATED HEMOGLOBIN Social History Tobacco Use Types Packs/Day Years Used Date Smoking Tobacco: Never Passive Smoke Exposure: Never Smokeless Tobacco: Never Alcohol Use Standard Drinks/Week Comments Never 0 (1 standard drink = 0.6 oz pur e alcohol) [facility] Utilities Answer Date Recorded In the past 12 months has [employer], gas, oil, or water [employer] threatened to shut off services in your [...] often do you attend chur ch or jew services? Patient unable to answer 11/15/2023 Do you belong to any clubs o r organizations such as adventism groups, unions, fraternal or athletic groups, or [...] Total Score - Questions 1-9 0 09/19 [facility] - Occupational Stress Questionnaire Answer Date [...] place to sleep or slept in a snf (including now)? Patient unable to answer 11/15/2023 [...] Internal Medicine [place] [address] [place] [address] Josue Walsh MD [address] [place] [address] documented as of this encounter Visit Diagnoses Not on filedocumented in this encounter Additional Health Concerns Assessment Noted Time PHQ-9 Depression Total Score: 0 09/30/19 21 10:00 AM RELOCATION MANAGER documented as of this encounter Care Teams Arc Welding Machine Operator Relationship Specialty Start Date End Date Josue Walsh MD [address] [place] [address] PCP - General Internal Medicine 09/18/20 documented as of this encounter
--- OUTSIDE RECORDS SUMMARY | 2025-01-10 19:19 | XMS_ITS | Clinical Summary ---
Author Organization [facility] Address [address] [place] [address] Phone Care Team Providers Care Grazing Aide Name Role Phone Josue Walsh MD Primary Care Provider [phone] Allergies No known active allergies Medications fenofibrate [...] Active fluticasone (FLONASE) 50 MCG/ACT Suspension 1 [place] by Nasal route daily. Use in each nostril as directed. 16 g 5 Active Active Problems Problem Noted Date Diagnosed Date Type 2 diabetes mellitus wit hout complication, without long-term current use of insulin 09/30/2020 Mixed hyperlipidemia 09/30/2020 Bipolar disorder 09/30/2020 Intellectual disability 09/30/2020 Encounters Date Type Department Care Team Description 12/17/2024 2:00 PM CDT Office Visit [facility] Internal Medicine [facility] [address] [place] [address] Josue Walsh MD Ear pain, bilateral (Primary Dx); Type 2 diabetes mellitus without complication, without long-term current use of insulin (HCC); Acute pain of right shoulder Discharge Disposition: Discharged to home or Selfcare 12/17/2024 Results Follow-Up [facility] Internal Medicine [facility] [address] [place] [id number] Josue Walsh MD POCT GLYCOSYLATED HEMOGLOBIN 12/17/2024 [...] drink = 0.6 oz pur e alcohol) [facility] Utilities Answer Date Recorded In the past 12 months has e [employer], gas, oil, or water [employer] threatened to shut off services in your [...] How often do you attend chur or denominational services? Patient unable to answer 11/15/2023 Do [...] Total Score - Questions 1-9 0 09/19 [facility] - Occupational Stress Questionnaire Answer Date [...] place to sleep or slept in a retirement (including now)? Patient unable to answer 11/15/2023 [...] Medicine - [place] [address] [place] [address] Josue Walsh MD [address] [place] [address] Health Maintenance Due Date Last Done Comments [...] CMP (COMPREHENSIVE METABOLIC PANEL) 10/10/2024 12:00 AM WORKERS COMPENSATION DEFENSE ATTORNEY from Last 3 Months or Most Recently Relevant to Health Maintenance Results * (ABNORMAL) POCT GLYCOSYLATED HEMOGLOBIN (12/17/2024 2:10 PM CDT) HGB-A1C 7.1(A) 4 - 6 % 12/17/2024 2:10 PM CDT Josue Walsh MD POINT OF CARE TESTING (MANU AL) Final Result * CMP (COMPREHENSIVE METABOLIC PANEL) (10/10/2024 12:00 AM WORKERS COMPENSATION DEFENSE ATTORNEY) 10/10/2024 us Provider Scan CHEMISTRY ORDERABLES Final Resul t SCAN from Last 3 Months or Most Recently Relevant to Health Maintenance Insurance [place]ID [place] Care Teams Grazing Aide Relationship Specialty Start Date End Date Josue Walsh MD [address] [place] [address] PCP - General Internal Medicine 09/18/20
--- NOTE | 2025-01-10 19:39 | ED_ITS ---
HPI - Abdominal Pain General Chief Complaint: Abdominal Pain Stated Complaint: abd pain Time Seen by Provider: 01/10/25 18:35 History of Present Illness HPI narrative: 35-year-old female presenting to the emergency room with left-sided abdominal pain. Started yesterday. Normal bowel movement today without any diarrhea. No nausea, vomiting, constipation. No fever chills. No trauma or injury. No urinary complaints. She resides at a residential. She has a history of behavioral disorder with bipolar/schizophrenia. No new medications. She was otherwise in her normal state of health. No vaginal bleeding. Related Data Home Medications ?Medication ?Instructions ?Recorded ?Confirmed ?Last Taken ?Type benztropine 0.5 mg tablet mg 02/08/23 Unknown History fenofibrate nanocrystallized 48 mg 48 mg PO DAILY 02/08/23 08/29/23 Unknown History tablet fluoxetine 40 mg capsule 40 mg PO DAILY 02/08/23 08/29/23 Unknown History glipizide 5 mg tablet 5 mg 02/08/23 Unknown History haloperidol 10 mg tablet mg 02/08/23 Unknown History metformin 500 mg tablet,extended 500 mg PO 02/08/23 Unknown History release 24 hr pioglitazone 45 mg tablet mg 02/08/23 Unknown History diphenhydramine HCl 25 mg capsule 25 mg PO TID PRN Allergy Symptoms 08/23/23 Unknown History Allergies Allergy/AdvReac Type Severity Reaction Status Date / Time No Known Allergies Allergy Verified 01/10/25 18:11 Review of Systems 2 Review of Systems: As reviewed above in HPI [facility] Social History Social History Substance use type: does not use Exam 2 Narrative: GENERAL: [Well-appearing, well-nourished, and in no acute distress.] HEAD: [Normocephalic, atraumatic.] EYES: [PERRLA and EOMI.] ENT: Nares clear, no rhinorrhea or epistaxis. Mucous membranes moist. NECK: Supple. CHEST: [Clear to auscultation. No respiratory distress.] HEART: [Regular rate and rhythm]. No murmur heard. [Normal peripheral pulses.] ABDOMEN: [Soft, nondistended], [nontender], [No rigidity or guarding] EXTREMITIES: Normal range of motion. [No edema.] SKIN: Warm, dry, no rash. NEURO: [No focal deficits]. Alert and oriented [x3.] PSYCH: [Normal mood and affect.] Course Vital Signs Vital signs: Vital Signs Temperature 36.4 C 01/10/25 18:22 Pulse Rate 76 01/10/25 18:22 Respiratory Rate 20 01/10/25 18:22 Blood Pressure 112/66 01/10/25 18:22 Pulse Oximetry 97 01/10/25 18:22 Oxygen Delivery Room Air 01/10/25 18:22 Temperature 36.4 C 01/10/25 18:22 Pulse Rate 75 01/10/25 19:18 Respiratory Rate 18 01/10/25 19:18 Blood Pressure 121/66 01/10/25 19:18 Pulse Oximetry 100 01/10/25 19:18 Oxygen Delivery Room Air 01/10/25 18:22 MDM - Abdominal Pain MDM Narrative Medical decision making narrative: 35-year-old female with history of behavioral issues, bipolar depression and schizophrenia. She resides at a residential. She presents from urgent care for complaints of left lower quadrant abdominal pain for 1 day's duration. She is not any acute distress, has a soft nontender nondistended abdomen. Did not take anything for pain prior to arrival. She is not nauseous, vomiting or having constipation. Normal bowel movement this morning. No urinary complaints or vaginal bleeding. Overall very benign-appearing examination with normal vital signs. Suspicion presents for constipation, renal colic, renal stone, less likely ovarian pathology or . Workup was obtained including CBC, CMP, lipase, urinalysis and test. CT scan without contrast obtained and she was given Toradol for analgesia. Workup shows no leukocytosis, hemoglobin of 10.8 which is around her baseline anemia. Normal platelet count. Chemistry panel is reassuring. Normal electrolytes. Normal renal function, normal glucose. LFTs largely unremarkable. Normal lipase. Urinalysis unremarkable and negative urine test. CT scan shows no acute intra-abdominal pathology but there is a fatty liver. Patient is safe for discharge home as she is currently asymptomatic on my re-evaluations were normal vital signs and unremarkable workup. She was given Bentyl as a prescription and is safe for discharge home at this time. Medical Records Attestation: I reviewed the patient's medical records. Lab Data Attestation: I reviewed the patient's lab results. 01/10/25 18:38 01/10/25 18:38 Labs: Lab Results 01/10/25 01/10/25 01/10/25 Range/Units 18:38 19:38 19:40 WBC 6.9 (4.5-10.0) K/mm3 RBC 3.78 L (4.2-5.4) M/mm3 Hgb 10.8 L (12.0-15.0) g/dL Hct 33.9 L (37.0-47.0) % MCV 89.7 (80-100) fl MCH 28.6 (26-34) pg MCHC 31.9 L (32-36) g/dl RDW 13.1 (11.5-14.5) % Plt Count 316 (150-375) k/mm3 MPV 10.0 (7.4-10.4) fl Immature Gran % (Auto) 0.7 H (0-0.5) % Neut % (Auto) 48.6 (45.5-73.1) % Lymph % (Auto) 40.1 (18.3-44.2) % [place] % (Auto) 6.5 (2.6-8.5) % Eos % (Auto) 3.5 (0-4.4) % Baso % (Auto) 0.6 (0.2-1.2) % Lymph # (Auto) 2.78 (0.9-3.2) K/mm3 [place] # (Auto) 0.5 (0.1-0.6) K/mm3 Eos # (Auto) 0.2 (0-0.3) K/mm3 Baso # (Auto) 0.0 (0.0-0.1) K/mm3 Abs Immat Gran (auto) 0.05 H (0.00-0.031) K/mm3 Absolute Neuts (auto) 3.4 (1.3-6.7) K/mm3 Absolute Nucleated RBC 0.000 (0.0-0.012) K/mm3 Nucleated RBC % 0.0 (0.0-0.2) % Sodium 138 (137-145) mmol/L Potassium 4.0 (3.4-5.0) mmol/L Chloride 103 (98-107) mmol/L Carbon Dioxide 26 (22-30) mmol/L Anion Gap 9 (4-12) mmol/L BUN 9 (7-17) mg/dL Creatinine 0.50 L (0.7-1.0) mg/dL Estim Creat Clear Calc Not Reportable Estimated GFR > 60 (59 - ) Glucose 117 H (65-110) mg/dL Calcium 8.9 (8.4-10.2) mg/dL Total Bilirubin 0.5 (0.2-1.3) mg/dL AST 25 (14-36) U/L ALT 41 H (6-35) U/L Alkaline Phosphatase 58 (38-126) U/L Total Protein 8.0 (6.3-8.2) g/dL Albumin 4.5 (3.5-5.1) g/dL Lipase 46 (23-300) U/L Urine Color Yellow (Yellow) Urine Appearance Clear (Clear) Urine pH 7.5 (5.0-9.0) Ur Specific [place] 1.004 (1.001-1.035) Urine Protein Negative (Negative) mg/dL Urine Glucose (UA) Negative (Negative) mg/dL Urine Ketones Negative (Negative) mg/dL Ur Blood (Man) Negative (Negative) Urine Nitrate Negative (Negative) Urine Bilirubin Negative (Negative) Urine Urobilinogen 0.2 (<2.0) mg/dL Leukocyte Esterase Rfl Negative (Negative) SIDNEY/UL POC Urine HCG, Qual Negative (Negative) Imaging Data Attestation: I personally reviewed and interpreted this imaging study as follows: My impression: Impressions Abdomen/Pelvis CT 01/10/25 20:19 IMPRESSION: Fatty infiltration of an enlarged liver. No acute intra-abdominal pathology, as detailed above. Radiologist's impression: ITS Impressions Abdomen/Pelvis CT 01/10/25 20:19 IMPRESSION: Fatty infiltration of an enlarged liver. No acute intra-abdominal pathology, as detailed above. Discharge Plan Discharge Clinical Impression: Abdominal pain, Fatty liver Patient Disposition: Home Condition: Stable Instructions: Antibiotic Form, Abdominal Pain (ED) Additional Instructions: Your CT scan shows no acute abnormalities or concerns. There is some minor fatty infiltration of your liver but your laboratory studies are normal. Contact your primary care provider for follow-up about this. We will send you home with some medications for any residual abdominal pain. Return with any emergent concerns otherwise follow-up with your regular doctor. Patient Language: [place] Prescriptions: New dicyclomine 20 mg tablet 20 mg PO TID PRN (Reason: abdominal pain) Qty: 14 0RF No Action fluoxetine 40 mg capsule 40 mg PO DAILY benztropine 0.5 mg tablet pioglitazone 45 mg tablet haloperidol 10 mg tablet metformin 500 mg tablet extended release 24 hr 500 mg PO glipizide 5 mg tablet 5 mg fenofibrate nanocrystallized 48 mg tablet 48 mg PO DAILY diphenhydramine HCl 25 mg Capsule 25 mg PO TID PRN (Reason: Allergy Symptoms) Follow-up/Referrals: PHYSICIAN NOT ON STAFF,NONSTAFF [Primary Care Provider] - Time of Disposition: 20:40
[2025-01-10 19:43] LABS: BEDSIDEPREGUCG Negative (Negative)
[2025-01-10 19:44] LABS: Add Urine Microscopic? NO; Appearance Urine Clear (Clear); Bilirubin Urine Negative (Negative); Blood Urine Negative (Negative); Color Urine Yellow (Yellow); Glucose Urine UA Negative (Negative); Ketones Urine Negative (Negative); Leukocyte Esterase Ur Negative LEU/UL (Negative); Nitrate Urine Negative (Negative); Protein Urine Negative (Negative); Specific Grav Ur 1.004 (1.001-1.035); Urobilinogen Urine 0.2 mg/dL (<2.0); pH Urine 7.5 (5.0-9.0)
[2025-01-10] MEDS: KETOROLAC 15 MG/ML VIAL (*BKC) IV PUSH (19:44)
--- NOTE | 2025-01-10 21:24 | PC.NURSE ---
pt legal guardian notified of pt POC and visit. This RN taught pt and pt caregiver discharge instructions.
[2025-01-10 21:31] VITALS: BP 123/71; PULSE 68; RESP 17; O2SAT 99
== END 2025-01-10 21:33 | disposition home or self-care (01) ==
PROVIDERS: Emergency Medicine; Emergency Provider Student in an Organized Health Care Education/Training Program
DX: R10.9 Unspecified abdominal pain (principal); K76.0 Fatty (change of) liver, not elsewhere classified
CPT/HCPCS: 36415; 74176; 80053; 81003; 81025; 83690; 85025; 96374; 99284; J1885